=== PATIENT | female | born 2000 | race African-American/Black ===

== ENCOUNTER 2025-06-18 17:49 | Emergency (ER) | payer BC, SELFPAY ==
--- NOTE | ~2025-06-18 | XR_ITS ---
EXAMINATION: XR chest 2V DATE: 06/18/2025 18:25 INDICATION: Chest pain. TECHNIQUE: Frontal and lateral views of the chest were obtained. COMPARISON: None. FINDINGS: Heart size is normal. Lungs are free of acute processes. IMPRESSION: 1. No acute findings. Reviewed, dictated and finalized at location T. RAISING COORDINATOR IMPRESSION: 1. No acute findings.
--- NOTE | 2025-06-18 17:51 | ECG_ITS ---
Test Date: 2025-06-18 17:56:00 Measurements Intervals [place] Rate: 94 P: 61 KS: 144 QRS: 45 QRSD: 82 T: 30 QT: 340 QTc: 425 Interpretive Statements SINUS RHYTHM NONSPECIFIC T-WAVE ABNORMALITY- INFERIOR LEADS BASELINE WANDER- V4 BORDERLINE ECG No previous ECG available for comparison Electronically Signed On 06-19-2025 06:56:43 MARKET RELATIONSHIP MANAGER by Lamin Hinojosa D.O.
[2025-06-18 18:09] VITALS: BP 123/73; PULSE 93; RESP 17; TEMP 36.6; O2SAT 98
[2025-06-18 18:13] LABS: Hematocrit 37.4 % (37.0-47.0); Hemoglobin 12.6 g/dL (12.0-15.0); Immature Granulocyte Percent A 0.3 % (0-0.5); Lymphocytes Absolute Auto 4.63 K/mm3 (0.9-3.2); Mean Corpuscular HGB Conc 33.7 g/dl (32-36); Mean Corpuscular Hemoglobin 31.1 pg (26-34); Mean Corpuscular Volume 92.3 fl (80-100); Nucleated Red Blood Cells Absolute Auto 0.000 K/mm3 (0.0-0.012); Nucleated Red Blood Cells Perc 0.0 % (0.0-0.2); Platelet Count Result 257 k/mm3 (150-375); Red Blood Count 4.05 M/mm3 (4.2-5.4); White Blood Count 9.7 K/mm3 (4.5-10.0)
[2025-06-18 18:26] LABS: Alanine Aminotransferase 31 U/L (6-35); Albumin Level 4.3 g/dL (3.5-5.1); Alkaline Phosphatase 80 U/L (38-126); Anion Gap 9 mmol/L (4-12); Aspartate Amino Transferase 30 U/L (14-36); Bilirubin,Total 0.3 mg/dL (0.2-1.3); Blood Urea Nitrogen 9 mg/dL (7-17); Calcium 9.2 mg/dL (8.4-10.2); Carbon Dioxide 22 mmol/L (22-30); Chloride 108 mmol/L (98-107); Estimated CRCL calculation 92 ml/min; Estimated Glomerular Filt Rate > 60; Glucose 118 mg/dL (65-110); Lipase 125 U/L (23-300); Potassium 3.9 mmol/L (3.4-5.0); Sodium 139 mmol/L (137-145); Total Protein 7.3 g/dL (6.3-8.2)
[2025-06-18 18:30] LABS: INR 0.9; Prothrombin Time 12.4 Seconds (11.1-14.7)
[2025-06-18 18:31] LABS: Partial Thromboplastin Time 28.6 Seconds (22.3-36.8)
[2025-06-18 18:37] LABS: Troponin I < 0.012 ng/mL (0.000-0.034)
[2025-06-18 19:03] VITALS: BP 109/72; PULSE 85; RESP 16; TEMP 36.6; O2SAT 99
[2025-06-18] MEDS: KETOROLAC 15 MG/ML VIAL (*BKC) IV PUSH (20:10)
--- NOTE | 2025-06-18 20:57 | ECG_ITS ---
Test Date: 2025-06-18 21:19:10 Measurements Intervals [place] Rate: 76 P: 59 VA: 161 QRS: 55 QRSD: 90 T: 37 QT: 362 QTc: 409 Interpretive Statements SINUS RHYTHM MINIMAL Q WAVES- ANTEROLAT/INF LEADS BASELINE ARTIFACT- I, III, AVL BORDERLINE ECG Compared to ECG 06/18/2025 17:56:00 NO SIGNIFICANT CHANGE Electronically Signed On 06-19-2025 06:41:45 IMAGING ACCOUNT MANAGER by Lamin Hinojosa D.O.
--- NOTE | 2025-06-18 20:57 | ED_ITS ---
HPI - General Adult General Chief complaint: Chest Pain Stated complaint: chest pain Time Seen by Provider: 06/18/25 19:14 History of Present Illness HPI narrative: Patient 24-year-old female who presents emergency department with chief complaint of chest pain. 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 Nursing and ancillary documentation was reviewed. Exam 2 Narrative: GENERAL: Well-appearing, well-nourished, and in no acute distress. HEAD: Normocephalic, atraumatic. EYES: PERRLA and EOMI. ENT: Nares clear, no rhinorrhea or epistaxis. Mucous membranes moist. NECK: Supple. CHEST: Clear to auscultation. No respiratory distress. Tenderness to palpation left sternal border HEART: Regular rate and rhythm. No murmur heard. Normal peripheral pulses. ABDOMEN: Soft, nontender, nondistended, normal active bowel sounds. EXTREMITIES: Normal range of motion. No edema. SKIN: Warm, dry, no rash. NEURO: No focal deficits. Alert and oriented x3. PSYCH: Normal mood and affect. Course Vital Signs Vital signs: Vital Signs Temperature 36.6 C 06/18/25 18:09 Pulse Rate 93 06/18/25 18:09 Respiratory Rate 17 06/18/25 18:09 Blood Pressure 123/73 06/18/25 18:09 Pulse Oximetry 98 06/18/25 18:09 Oxygen Delivery Room Air 06/18/25 18:09 Temperature 36.6 C 06/18/25 19:03 Pulse Rate 85 06/18/25 19:03 Respiratory Rate 16 06/18/25 19:03 Blood Pressure 109/72 06/18/25 19:03 Pulse Oximetry 99 06/18/25 19:03 Oxygen Delivery Room Air 06/18/25 18:59 MDM Differential Diagnosis Differential Diagnosis: ACS, costochondritis, chest wall pain, pleurisy, EKG showed no acute ischemic change Initial troponin was negative Chest x-ray was negative 3 hour repeat troponin was also negative patient be discharged home with prescription for and laboratories and should follow up primary care Lab Data 06/18/25 18:07 06/18/25 18:07 Labs: Lab Results 06/18/25 06/18/25 Range/Units 18:07 21:16 WBC 9.7 (4.5-10.0) K/mm3 RBC 4.05 L (4.2-5.4) M/mm3 Hgb 12.6 (12.0-15.0) g/dL Hct 37.4 (37.0-47.0) % MCV 92.3 (80-100) fl MCH 31.1 (26-34) pg MCHC 33.7 (32-36) g/dl RDW 12.7 (11.5-14.5) % Plt Count 257 (150-375) k/mm3 MPV 10.5 H (7.4-10.4) fl Immature Gran % (Auto) 0.3 (0-0.5) % Neut % (Auto) 43.2 L (45.5-73.1) % Lymph % (Auto) 47.9 H (18.3-44.2) % [place] % (Auto) 5.8 (2.6-8.5) % Eos % (Auto) 2.1 (0-4.4) % Baso % (Auto) 0.7 (0.2-1.2) % Lymph # (Auto) 4.63 H (0.9-3.2) K/mm3 [place] # (Auto) 0.6 (0.1-0.6) K/mm3 Eos # (Auto) 0.2 (0-0.3) K/mm3 Baso # (Auto) 0.1 (0.0-0.1) K/mm3 Abs Immat Gran (auto) 0.03 (0.00-0.031) K/mm3 Absolute Neuts (auto) 4.2 (1.3-6.7) K/mm3 Absolute Nucleated RBC 0.000 (0.0-0.012) K/mm3 Nucleated RBC % 0.0 (0.0-0.2) % PT 12.4 (11.1-14.7) Seconds INR 0.9 APTT 28.6 (22.3-36.8) Seconds Sodium 139 (137-145) mmol/L Potassium 3.9 (3.4-5.0) mmol/L Chloride 108 H (98-107) mmol/L Carbon Dioxide 22 (22-30) mmol/L Anion Gap 9 (4-12) mmol/L BUN 9 (7-17) mg/dL Creatinine 0.78 (0.7-1.0) mg/dL Estim Creat Clear Calc 92 ml/min Estimated GFR > 60 (59 - ) Glucose 118 H (65-110) mg/dL Calcium 9.2 (8.4-10.2) mg/dL Total Bilirubin 0.3 (0.2-1.3) mg/dL AST 30 (14-36) U/L ALT 31 (6-35) U/L Alkaline Phosphatase 80 (38-126) U/L Troponin I < 0.012 < 0.012 (0.000-0.034) ng/mL Total Protein 7.3 (6.3-8.2) g/dL Albumin 4.3 (3.5-5.1) g/dL Lipase 125 (23-300) U/L Imaging Data Radiologist's impression: ITS Impressions Chest X-Ray 06/18/25 18:31 IMPRESSION: 1. No acute findings. Discharge Plan Discharge Clinical Impression: Atypical chest pain, Anterior chest wall pain Patient Disposition: Home Condition: Stable Instructions: Antibiotic Form, Chest Pain (ED), Costochondritis (ED), Chest Wall Pain (ED) Patient Language: Maltese Prescriptions: New diclofenac potassium 50 mg tablet 50 mg PO TID PRN (Reason: pain) Qty: 30 0RF Follow-up/Referrals: Jose Armando Sam MD [Physician, Family Practice] UNKNOWN,DOCTOR [Primary Care Provider] Time of Disposition: 22:06 Quality HEART score for chest pain patients History: slightly suspicious ECG: normal Age: < or = to 45 years Risk factors: no risk factors known Troponin: < or = to 1x normal limit Heart score: 0
[2025-06-18 21:57] LABS: Troponin I < 0.012 ng/mL (0.000-0.034)
[2025-06-18 22:18] VITALS: BP 117/88; PULSE 86; RESP 18; O2SAT 99
== END 2025-06-18 22:23 | disposition home or self-care (01) ==
PROVIDERS: Student in an Organized Health Care Education/Training Program; Emergency Provider Emergency Medicine
DX: R07.89 Other chest pain (principal)
CPT/HCPCS: 36415; 71046; 80053; 83690; 84484; 85025; 85610; 85730; 93005; 96374; 99284; J1885